=== PATIENT | female | born 1975 | race Caucasian/White ===

== ENCOUNTER 2020-12-12 18:11 | Emergency (ER) | payer MEDICAID ==
[~2020-12-12] VITALS: Ht 154.9 cm; Wt 81.6 kg
[2020-12-12 18:24] VITALS: BP 139/66
--- NOTE | 2020-12-12 18:29 | NUR ---
PT AMBULATED WITH USE OF CANE TO BED 1.
--- NOTE | 2020-12-12 18:40 | NUR ---
45/F PRESENTS TO ED WITH C/O LOWER BACK PAIN SINCE THURSDAY. PATIENT STATES THE PAIN IS A SHARP 10/10 PAIN THAT STARTS IN HER LEFT LOWER BACK AND RADIATING DOWN HER LEFT LEG THAT WORSENS WHEN SHE ATTEMPTS TO GET UP. PATIENT STATES SHE HAS HISTORY OF SCIATICA PAIN AND SAYS THIS FEELS SIMILAR. PATIENT STATES SHE HAS ONLY TAKEN TYLENOL WITH MINIMAL RELIEF, PATIENT DENIES ABDOMINAL PAIN, NAUSEA, VOMITING, DYSURIA AND HEMATURIA.
[2020-12-12] MEDS ORDERED: NAPR-54 PO (18:49)
[2020-12-12] MEDS ORDERED: METH750T5 PO (18:49)
[2020-12-12] MEDS ORDERED: LIDO1ADH47 TP (18:49)
[2020-12-12] MEDS ORDERED: PRED20TA5 PO (18:49)
[2020-12-12] MEDS ORDERED: KETOROLAC 60 MG/2 ML VIAL IM ONE (18:50)
--- NOTE | 2020-12-12 19:10 | NUR ---
Patient discharged with v/s stable. Written and verbal after care instructions given and explained. Patient alert, oriented and verbalized understanding of instructions. Ambulatory with steady gait. All questions addressed prior to discharge. ID band removed. Patient advised to follow up with PMD. Rx of Lidocaine, Robaxin, Naprosyn, Prednisone given. Patient educated on indication of medication including possible reaction and side effects. Opportunity to ask questions provided and answered.
[2020-12-12 19:13] VITALS: BP 139/66
== END 2020-12-12 19:10 | disposition home or self-care (01) ==
LOC: MED 18:11
DX: M54.40 Lumbago with sciatica, unspecified side (principal); Z88.0 Allergy status to penicillin; Z79.899 Other long term (current) drug therapy; Z98.890 Other specified postprocedural states
CPT/HCPCS: 81002; 81025; 96372; 99283; J1885

== ENCOUNTER 2021-01-06 13:20 | Emergency (ER) | payer MEDICAID ==
[~2021-01-06] VITALS: Ht 154.9 cm; Wt 77.1 kg
[~2021-01-06 13:20] MED LIST: LIDO1ADH47 TP; METH750T5 PO; NAPR-54 PO; PRED20TA5 PO
[2021-01-06 13:23] VITALS: BP 129/79
[2021-01-06] MEDS ORDERED: KETOROLAC 30 MG/ML VIAL IM ONE (13:35)
[2021-01-06] MEDS ORDERED: IBUP-2213 PO (14:33)
[2021-01-06] MEDS ORDERED: DICL1GEL19 TP (14:33)
== END 2021-01-06 14:40 | disposition home or self-care (01) ==
LOC: MED 13:20
DX: M54.5 Low back pain (principal); Z88.0 Allergy status to penicillin; Z79.899 Other long term (current) drug therapy
CPT/HCPCS: 72100; 81002; 81025; 96372; 99283; J1885

== ENCOUNTER 2022-03-23 20:35 | Emergency (ER) | payer MEDICAID ==
[~2022-03-23] VITALS: Ht 154.9 cm; Wt 82.1 kg
[~2022-03-23 20:35] MED LIST changes: +DICL1GEL19 TP; +IBUP-2213 PO
[2022-03-23 20:40] VITALS: BP 139/91
--- NOTE | 2022-03-24 00:21 | NUR ---
Dr. Louise examining patient.
[2022-03-24] MEDS ORDERED: HYDR25CA1 PO (00:34)
[2022-03-24 00:46] VITALS: BP 122/82
--- NOTE | 2022-03-24 00:46 | NUR ---
Patient discharged with v/s stable. Written and verbal after care instructions given and explained. Patient alert, oriented and verbalized understanding of instructions. Ambulatory with steady gait. All questions addressed prior to discharge. ID band removed. Patient advised to follow up with PMD. Rx of Vistaril given. Patient educated on indication of medication including possible reaction and side effects. Opportunity to ask questions provided and answered.
== END 2022-03-24 00:46 | disposition home or self-care (01) ==
LOC: MED 20:35
DX: F41.9 Anxiety disorder, unspecified (principal); R03.0 Elevated blood-pressure reading, without diagnosis of hypertension; Z88.0 Allergy status to penicillin; Z79.899 Other long term (current) drug therapy
CPT/HCPCS: 71045; 93005; 99284

== ENCOUNTER 2022-08-31 14:00 | Emergency (ER) | payer MEDICAID ==
[~2022-08-31] VITALS: Ht 152.4 cm; Wt 81.6 kg
[~2022-08-31 14:00] MED LIST changes: +HYDR25CA1 PO
[2022-08-31 14:14] VITALS: BP 133/73
--- NOTE | 2022-08-31 14:26 | NUR ---
pt in room 12, at bs
[2022-08-31] MEDS ORDERED: KETOROLAC 30 MG/ML VIAL IM ONE (15:30)
--- NOTE | 2022-08-31 15:37 | NUR ---
medicated for pelvic pain per md order
[2022-08-31 16:09] LABS: APPEARANCE,URINE CLEAR (CLEAR); BILIRUBIN,URINE NEGATIVE (NEGATIVE); BLOOD, URINE 3+ (NEGATIVE); COLOR,URINE YELLOW (YELLOW); LEUKOCYTE ESTERASE ,URINE 3+ (NEGATIVE); NITRITE, URINE NEGATIVE (NEGATIVE); UGLUCOSE NEGATIVE (NEGATIVE)
[2022-08-31 16:54] LABS: RBC,URINE 11-20 (MOD) /HPF (0-5); WBC,URINE 20-60 /HPF (0-5)
[2022-08-31] MEDS ORDERED: PHEN-1901 PO (16:54)
[2022-08-31] MEDS ORDERED: SULF-59 PO (16:54)
[2022-08-31 16:55] LABS: TRICHOMONAS,URINE None Seen /HPF (None Seen); YEAST,URINE None Seen /HPF (None Seen)
[2022-08-31 17:10] VITALS: BP 124/76
--- NOTE | 2022-08-31 17:11 | NUR ---
Patient discharged with v/s stable. Written and verbal after care instructions given and explained. Patient verbalized understanding. Ambulatory with steady gait. All questions addressed prior to discharge. Advised to follow up with PMD. pelvic pain 08/26, no n/v
--- NOTE | 2022-09-03 15:59 | NUR ---
LATE ENTRY. RECEIVED POSITIVE URINE CULTURE RESULT. FORM GIVEN TO DR SHRESTHA. TREATMENT APPROPRIATE. FORM PLACED IN BINDER.
== END 2022-08-31 17:11 | disposition home or self-care (01) ==
LOC: MED 14:00
DX: N39.0 Urinary tract infection, site not specified (principal); R31.9 Hematuria, unspecified; Z88.0 Allergy status to penicillin; Z79.899 Other long term (current) drug therapy
CPT/HCPCS: 81001; 81025; 87086; 96372; 99283; J1885

== ENCOUNTER 2022-09-21 19:27 | Emergency (ER) | payer MEDICAID ==
[~2022-09-21] VITALS: Ht 154.9 cm; Wt 77.1 kg
[~2022-09-21 19:27] MED LIST changes: +PHEN-1901 PO; +SULF-59 PO
[2022-09-21 19:41] VITALS: BP 151/71
--- NOTE | 2022-09-21 19:45 | NUR ---
PT [facility], TAKEN TO LOBBY BY EMS VIA WHEELCHAIR
--- NOTE | 2022-09-21 19:45 | NUR ---
PT OFFLOADED TO LOBBY.
--- NOTE | 2022-09-21 20:22 | NUR ---
LWBS PER ADMITTING
== END 2022-09-21 20:22 | disposition left against medical advice (07) ==
LOC: MED 19:27
DX: F41.9 Anxiety disorder, unspecified (principal); R53.1 Weakness; Z53.21 Procedure and treatment not carried out due to patient leaving prior to being seen by health care provider